=== PATIENT | female | born 1965 | race American Indian/Alaskan Native ===

== ENCOUNTER 2021-02-14 10:40 | Outpatient (CLI) | payer OTHER ==
--- NOTE | 2021-02-14 12:49 | Ultrasound Report ---
ULTRASOUND THYROID INDICATION / CLINICAL INFORMATION: NONTOXIC SINGLE THYROID NODULE. COMPARISON: None available. FINDINGS: RIGHT LOBE: Size = 3.8 x 1.0 x 1.0 cm. - Echogenicity/Vascularity: Mildly heterogeneous echogenicity. No abnormal vascularity. - Nodules < 1 cm: Tiny partially cystic and hypoechoic nodules. - Nodules >= 1 cm or Suspicious Nodules: None. LEFT LOBE: Size = 3.4 x 1.1 x 1.2 cm. - Echogenicity/Vascularity: Mildly heterogeneous echogenicity. No abnormal vascularity. - Nodules < 1 cm: None. - Nodules >= 1 cm or Suspicious Nodules: None. ISTHMUS: Mildly heterogeneous echogenicity without abnormal vascularity. Thickness = 0.6 cm. - Nodules < 1 cm: Tiny partially cystic and hypoechoic nodules. - Nodules >= 1 cm or Suspicious Nodules: None. LYMPH NODES: No abnormal lymph nodes. PARATHYROID GLANDS: No abnormal parathyroid gland identified. ADDITIONAL FINDINGS: None. IMPRESSION: 1. Multiple tiny nodules, none of which meet criteria for further follow-up or fine needle aspiration . 2. Mildly heterogeneous thyroid which can be seen in the setting of chronic thyroiditis. No abnormal vascularity. NOTE: Nodules < 1 cm do not typically require follow-up or FNA unless there are suspicious features ( KAYLA, 2015) ACR TI-RADS Thyroid Nodule Recommendations TI-RADS 1 (0 points) ----- BENIGN. No Fine Needle Aspirate biopsy (FNA) or follow-up. TI-RADS 2 (1-2 points) -- NOT SUSPICIOUS. No FNA or follow-up. TI-RADS 3 (3 points) ----- MILDLY SUSPICIOUS. Follow up in 1 year if >= 1.5 cm. FNA if >= 2.5 cm. TI-RADS 4 (4-6 points) -- MODERATELY SUSPICIOUS. Follow up in 1 year if >= 1.0 cm. FNA if >= 1.5 cm. TI-RADS 5 (7+ points) --- HIGHLY SUSPICIOUS. Follow up in 1 year if >= 0.5 cm. FNA if >= 1.0 cm. Reference: ACR Thyroid Imaging, Reporting and Data System (TI-RADS): White Paper of the ACR TI-RADS C ommittee. J AM Angelo Radiol 2017;14:587-595. (Additional recommendations based on [place] [employer] 2015 guidelines.) Signer Name: James Marie MD Signed: 02/14/2021 12:45 PM Workstation Name: [id number]
== END 2021-02-14 10:41 | disposition home or self-care (01) ==
LOC: US 10:40
PROVIDERS: ATTEND Otolaryngology
DX: E04.2 Nontoxic multinodular goiter (principal); E06.9 Thyroiditis, unspecified
CPT/HCPCS: 76536